=== PATIENT | female | born 1990 | race Two or more races ===

== ENCOUNTER 2018-03-27 12:27 | Emergency (ER) | payer OTHER ==
[~2018-03-27] VITALS: Ht 160 cm; Wt 90.7 kg
[2018-03-27] MEDS ORDERED: LABETALOL HCL100 MG (12:52)
== END 2018-03-27 18:14 | disposition home or self-care (01) ==
LOC: ER 12:27
DX: J01.00 Acute maxillary sinusitis, unspecified (principal); J32.2 Chronic ethmoidal sinusitis